=== PATIENT | female | born 1995 | race American Indian/Alaskan Native ===

== ENCOUNTER 2021-01-05 11:08 | Outpatient (CLI) | payer MEDICAID ==
--- NOTE | 2021-01-05 12:03 | XRay Report ---
CHEST 2 VIEWS INDICATION / CLINICAL INFORMATION: J45.40 MODERATE ASTHMA. COMPARISON: None available. FINDINGS: SUPPORT DEVICES: None. HEART / MEDIASTINUM: No significant abnormality. LUNGS / PLEURA: No significant pulmonary or pleural abnormality. No pneumothorax. ADDITIONAL FINDINGS: No significant additional findings. IMPRESSION: 1. No acute findings. Signer Name: Bong Bravo MD Signed: 01/05/2021 11:59 AM Workstation Name: [id number]
== END 2021-01-05 11:09 | disposition home or self-care (01) ==
LOC: SPVIMAG 11:08
PROVIDERS: ATTEND Anesthesiology
DX: J45.40 Moderate persistent asthma, uncomplicated (principal)
CPT/HCPCS: 71046